=== PATIENT | male | born 1990 | race Hispanic/Latino ===

== ENCOUNTER 2017-05-04 12:02 | Emergency (ER) | payer OTHER ==
[~2017-05-04 12:02] MED LIST: Iopamidol 370 76% 100 ML VIAL ONE
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
[2017-05-04] MEDS ORDERED: Naproxen 500 MG TAB ONE (14:16)
[2017-05-04] MEDS ORDERED: HYDROcodone/Acetaminophen 10/325 mg Tablet ONE (14:16)
[2017-05-04] MEDS ORDERED: Diazepam 5 MG TAB ONE (14:16)
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
== END 2017-05-04 14:35 | disposition home or self-care (01) ==
LOC: MADERS 12:02
DX: T07.XXXA Unspecified multiple injuries, initial encounter (principal); V79.3XXA Bus occupant (driver) (passenger) injured in unspecified nontraffic accident, initial encounter
CPT/HCPCS: 70450; 71260; 72125; 74177; G0390